=== PATIENT | female | born 1940 | race Caucasian/White ===

== ENCOUNTER 2022-10-20 13:17 | Outpatient (REF) | payer MEDICARE, SELFPAY ==
--- NOTE | ~2022-10-20 | XR_ITS ---
EXAMINATION: XR CHEST CLINICAL INFORMATION: Acute upper respiratory infection COMPARISON: None TECHNIQUE: 2 views of the chest were obtained. FINDINGS: Heart size normal. There is mild peribronchial thickening and increased interstitial markings. No focal consolidations. No pleural effusions. Surgical clips present in the gallbladder fossa and right axilla. XR/XR chest 2V IMPRESSION: Mild peribronchial thickening and increased interstitial markings. No focal consolidations. Without the benefit of prior studies it is difficult to say whether the above-mentioned findings are chronic. If so could correlate with interstitial disease versus infection.
== END 2022-10-20 13:18 | disposition home or self-care (01) ==
LOC: HO.HMGCX 13:17
PROVIDERS: PCP Internal Medicine; Visit Provider Nurse Practitioner Family
DX: J06.9 Acute upper respiratory infection, unspecified (principal)
CPT/HCPCS: 71046